=== PATIENT | male | born 1970 | race Caucasian/White ===

== ENCOUNTER 2016-10-13 10:49 | Emergency (ER) | payer OTHER ==
[~2016-10-13] VITALS: Ht 188 cm; Wt 87.5 kg
[2016-10-13 10:58] VITALS: BP 142/83; PULSE 86; RESP 20; TEMP 97.9; O2SAT 100
--- NOTE | 2016-10-13 11:05 | NUR ---
Pt placed to ER waiting room in stable condition.
--- NOTE | 2016-10-13 11:20 | NUR ---
Pt placed to ER bed 4, report given to PARTH Razo and Dr. Lutz.
--- NOTE | 2016-10-13 11:21 | NUR ---
ER at bedside examining patient.
[2016-10-13] MEDS ORDERED: IBUPROFEN 600 MG TABLET PO ONE (11:30)
--- NOTE | 2016-10-13 11:35 | NUR ---
PT PRESENTS TO ED C/O R WRIST PAIN S/P MECH FALL. PT HAS DECREASED ROM. PT HAS ABRASION TO FACE.
--- NOTE | 2016-10-13 11:50 | NUR ---
R WRIST SPLINT APPLIED.
[2016-10-13 12:47] VITALS: BP 122/79; PULSE 68; RESP 16; TEMP 98; O2SAT 98
--- NOTE | 2016-10-13 12:48 | NUR ---
Patient given written and verbal discharge instructions and verbalizes understanding. ER MD discussed with patient the results and treatment provided. Given copies of tests performed in ER. Patient in stable condition. ID arm band removed. Rx of IBUPROFEN given. Patient educated on pain management and to follow up with PMD. Pain Scale . Opportunity for questions provided and answered.
--- NOTE | 2016-10-14 09:37 | NUR ---
pt called back for abnormal x-ray and pt will f/u with PMD.
== END 2016-10-13 12:47 | disposition home or self-care (01) ==
LOC: SED 10:49
DX: S63.612A Unspecified sprain of right middle finger, initial encounter (principal); S60.211A Contusion of right wrist, initial encounter; S00.83XA Contusion of other part of head, initial encounter; R03.0 Elevated blood-pressure reading, without diagnosis of hypertension; W01.0XXA Fall on same level from slipping, tripping and stumbling without subsequent striking against object, initial encounter; Y93.89 Activity, other specified; Y99.8 Other external cause status; Y92.89 Other specified places as the place of occurrence of the external cause
CPT/HCPCS: 73140-TC; 99284

== ENCOUNTER 2016-12-14 09:14 | Outpatient (CLI) | payer OTHER ==
[2016-12-14 10:07] LABS: BASOPHILS % (AUTO) 0.4 % (0.0-2.0); EOSINOPHILS # (AUTO) 0.3 K/uL (0.0-0.4); EOSINOPHILS % (AUTO) 3.6 % (0.0-4.0); HEMATOCRIT 46.5 % (36-54); HEMOGLOBIN 15.4 g/dL (14.0-18.0); LYMPHOCYTES % (AUTO) 28.7 % (20.5-51.5); MEAN CORPUSCULAR HEMOGLOBIN 31 pg (27-31); MEAN CORPUSCULAR HGB CONC 33 % (32-36); MEAN CORPUSCULAR VOLUME 92 fL (79.0-98.0); MONOCYTES # (AUTO) 0.7 K/uL (0.0-1.0); MONOCYTES % (AUTO) 9.5 % (1.7-9.3); NEUTROPHILS # (AUTO) 4.1 K/uL (1.8-7.7); NEUTROPHILS % (AUTO) 57.8 % (40.0-70.0); PLATELET COUNT (AUTO) 249 K/uL (130-430); RED BLOOD CELL COUNT(AUTO) 5.03 MIL/uL (4.2-6.2); RED CELL DISTRIBUTION WIDTH 12.4 % (9.0-15.0); WHITE BLOOD COUNT (AUTO) 7.1 K/uL (4.8-10.8)
[2016-12-14 10:29] LABS: ALBUMIN 4.3 g/dL (3.4-4.8); CALCIUM 9.4 mg/dL (8.4-11.0); CREATININE 1.09 mg/dL (0.55-1.30); POTASSIUM 4.8 mmol/L (3.5-5.1); THYROID STIMULATING HORMONE 1.36 uIu/mL (0.34-4.82); TOTAL BILIRUBIN 0.5 mg/dL (0.0-1.0); TOTAL PROTEIN, SERUM 7.8 g/dL (6.4-8.3)
== END 2016-12-14 19:25 | disposition home or self-care (01) ==
LOC: SLB 09:14
PROVIDERS: ATTEND Specialist
DX: Z00.00 Encounter for general adult medical examination without abnormal findings (principal); E66.3 Overweight
CPT/HCPCS: 36415; 80053; 80061; 82306; 84443-TC; 85025

== ENCOUNTER 2018-01-28 09:21 | Outpatient (CLI) | payer OTHER ==
[2018-01-28 09:53] LABS: BASOPHILS % (AUTO) 0.7 % (0.0-2.0); EOSINOPHILS # (AUTO) 0.2 K/uL (0.0-0.4); EOSINOPHILS % (AUTO) 3.4 % (0.0-4.0); HEMATOCRIT 42.6 % (36-54); HEMOGLOBIN 14.6 g/dL (14.0-18.0); LYMPHOCYTES # (AUTO) 1.7 K/uL (1.0-5.5); LYMPHOCYTES % (AUTO) 29.4 % (20.5-51.5); MEAN CORPUSCULAR HEMOGLOBIN 33 pg (27-31); MEAN CORPUSCULAR HGB CONC 34 % (32-36); MEAN CORPUSCULAR VOLUME 95 fL (79.0-98.0); MONOCYTES # (AUTO) 0.5 K/uL (0.0-1.0); MONOCYTES % (AUTO) 9.1 % (1.7-9.3); NEUTROPHILS # (AUTO) 3.5 K/uL (1.8-7.7); NEUTROPHILS % (AUTO) 57.4 % (40.0-70.0); PLATELET COUNT (AUTO) 273 K/uL (130-430); RED BLOOD CELL COUNT(AUTO) 4.48 MIL/uL (4.2-6.2); RED CELL DISTRIBUTION WIDTH 12.1 % (9.0-15.0); WHITE BLOOD COUNT (AUTO) 5.9 K/uL (4.8-10.8)
[2018-01-28 10:21] LABS: ALBUMIN 3.8 g/dL (3.4-4.8); CALCIUM 8.6 mg/dL (8.4-11.0); CREATININE 1.03 mg/dL (0.55-1.30); POTASSIUM 4.1 mmol/L (3.5-5.1); THYROID STIMULATING HORMONE 1.32 uIu/mL (0.34-4.82); TOTAL BILIRUBIN 0.6 mg/dL (0.0-1.0)
[2018-01-31 11:09] LABS: HEMOGLOBIN A1C 5.2 % (4.8-5.6)
== END 2018-01-28 20:47 | disposition home or self-care (01) ==
LOC: SLB 09:21
PROVIDERS: ATTEND Specialist
DX: E55.9 Vitamin D deficiency, unspecified (principal); R73.09 Other abnormal glucose; E78.2 Mixed hyperlipidemia
CPT/HCPCS: 36415; 80053; 80061; 82306; 83036; 84443-TC; 85025

== ENCOUNTER 2019-07-10 09:49 | Outpatient (CLI) | payer OTHER ==
[2019-07-10 10:46] LABS: BASOPHILS % (AUTO) 0.7 % (0.0-2.0); EOSINOPHILS # (AUTO) 0.1 K/uL (0.0-0.4); EOSINOPHILS % (AUTO) 2.2 % (0.0-4.0); HEMATOCRIT 40.7 % (36-54); HEMOGLOBIN 14.3 g/dL (14.0-18.0); MEAN CORPUSCULAR HEMOGLOBIN 33 pg (27-31); MEAN CORPUSCULAR HGB CONC 35 % (32-36); MEAN CORPUSCULAR VOLUME 93 fL (79.0-98.0); MONOCYTES # (AUTO) 0.5 K/uL (0.0-1.0); MONOCYTES % (AUTO) 8.5 % (1.7-9.3); NEUTROPHILS # (AUTO) 3.6 K/uL (1.8-7.7); NEUTROPHILS % (AUTO) 57.6 % (40.0-70.0); PLATELET COUNT (AUTO) 248 K/uL (130-430); RED BLOOD CELL COUNT(AUTO) 4.38 MIL/uL (4.2-6.2); RED CELL DISTRIBUTION WIDTH 13.9 % (9.0-15.0); WHITE BLOOD COUNT (AUTO) 6.3 K/uL (4.8-10.8)
[2019-07-10 11:16] LABS: ALBUMIN 3.9 g/dL (3.4-4.8); CALCIUM 8.8 mg/dL (8.4-11.0); CREATININE 0.89 mg/dL (0.55-1.30); POTASSIUM 4.4 mmol/L (3.5-5.1); THYROID STIMULATING HORMONE 1.63 uIu/mL (0.36-3.74); TOTAL BILIRUBIN 0.5 mg/dL (0.0-1.0)
[2019-07-11 03:19] LABS: HEMOGLOBIN A1C 5.2 % (4.8-5.6)
[2019-07-11 07:06] LABS: PROSTATE SPECIFIC AG 2.6 ng/mL (0.0-4.0)
== END 2019-07-10 19:09 | disposition home or self-care (01) ==
LOC: SLB 09:49
PROVIDERS: ATTEND Specialist
DX: R73.09 Other abnormal glucose (principal); E66.3 Overweight; E55.9 Vitamin D deficiency, unspecified
CPT/HCPCS: 36415; 80053; 80061; 82306; 83036; 84153; 84443-TC; 85025

== ENCOUNTER → 2020-07-15 | Outpatient (CLI) | payer OTHER ==
[2020-07-16 07:28] LABS: C-REACTIVE PROTEIN QUANT < 0.2 mg/dL (0-0.5); URIC ACID 8.7 mg/dL (2.4-7.0)
== END | disposition home or self-care (01) ==
LOC: SLB 09:21
DX: M79.609 Pain in unspecified limb (principal)
CPT/HCPCS: 36415; 84550-TC; 85651-TC; 86038; 86140; 86431

== ENCOUNTER 2021-05-19 09:32 | Outpatient (CLI) | payer OTHER ==
[2021-05-19 10:30] LABS: BASOPHILS % (AUTO) 0.7 % (0.0-2.0); EOSINOPHILS # (AUTO) 0.3 K/uL (0.0-0.4); HEMATOCRIT 35.1 % (36-54); HEMOGLOBIN 11.3 g/dL (14.0-18.0); LYMPHOCYTES # (AUTO) 1.6 K/uL (1.0-5.5); LYMPHOCYTES % (AUTO) 27.7 % (20.5-51.5); MEAN CORPUSCULAR HEMOGLOBIN 24 pg (27-31); MEAN CORPUSCULAR HGB CONC 32 % (32-36); MEAN CORPUSCULAR VOLUME 75 fL (79.0-98.0); MONOCYTES # (AUTO) 0.5 K/uL (0.0-1.0); MONOCYTES % (AUTO) 8.8 % (1.7-9.3); NEUTROPHILS # (AUTO) 3.3 K/uL (1.8-7.7); NEUTROPHILS % (AUTO) 57.8 % (40.0-70.0); PLATELET COUNT (AUTO) 355 K/uL (130-430); RED BLOOD CELL COUNT(AUTO) 4.66 MIL/uL (4.2-6.2); RED CELL DISTRIBUTION WIDTH 15.9 % (9.0-15.0); WHITE BLOOD COUNT (AUTO) 5.7 K/uL (4.8-10.8)
[2021-05-19 10:43] LABS: TOTAL IRON BIND. CAPACITY 514 ug/dL (250-450)
[2021-05-19 10:45] LABS: CALCIUM 9.1 mg/dL (8.4-11.0); CREATININE 0.97 mg/dL (0.55-1.30); POTASSIUM 4.8 mmol/L (3.5-5.1); TOTAL BILIRUBIN 0.3 mg/dL (0.0-1.0)
[2021-05-20 07:06] LABS: HEMOGLOBIN A1C 5.5 % (4.8-5.6)
== END 2021-05-19 20:57 | disposition home or self-care (01) ==
LOC: SLB 09:32
PROVIDERS: ATTEND Specialist
DX: E55.9 Vitamin D deficiency, unspecified (principal); R73.09 Other abnormal glucose
CPT/HCPCS: 36415; 80053; 82306; 82607; 83036; 83540; 83550; 85025

== ENCOUNTER 2021-12-26 06:13 | Day surgery (SDC) | payer OTHER ==
[~2021-12-26] VITALS: Ht 188 cm; Wt 90.7 kg
[2021-12-26] MEDS ORDERED: MIDAZOLAM HCL 5 MG/5 ML VIAL ONE ×2 (07:08→08:58)
[2021-12-26] MEDS ORDERED: SIMETHICONE 40 MG/0.6 ML ML ONE (07:08)
[2021-12-26] MEDS ORDERED: MEPERIDINE 100 MG INJ. 100 MG/ML VIAL ONE (07:08)
[2021-12-26 13:18] VITALS: BP_SYST 125
== END 2021-12-26 10:00 | disposition home or self-care (01) ==
LOC: SMU 06:13 → SDS 06:13
PROVIDERS: ATTEND Internal Medicine Gastroenterology
DX: D50.9 Iron deficiency anemia, unspecified (principal); D12.3 Benign neoplasm of transverse colon; D12.4 Benign neoplasm of descending colon; D12.5 Benign neoplasm of sigmoid colon; K64.9 Unspecified hemorrhoids; K29.50 Unspecified chronic gastritis without bleeding; K92.1 Melena; Z87.891 Personal history of nicotine dependence; Z79.899 Other long term (current) drug therapy; Z20.822 Contact with and (suspected) exposure to COVID-19
CPT/HCPCS: 36415 ×2; 43239; 45380; 45381; 45385; 87426; 88305; 88312; 88313; 99152; 99153; G0378; J2175; J2250; U0003; 45384

== ENCOUNTER 2021-12-27 09:17 | Emergency (ER) | payer OTHER ==
[~2021-12-27] VITALS: Ht 188 cm; Wt 90.7 kg
[2021-12-27 09:34] VITALS: BP_SYST 151
--- NOTE | 2021-12-27 09:34 | NUR ---
Patient to ER bed 6 to gown for evaluation. Side rails up. Report given to [place].
--- NOTE | 2021-12-27 09:43 | NUR ---
EMERITA Kruger at bedside examining patient.
--- NOTE | 2021-12-27 09:50 | NUR ---
Pt presents to ER BIB self from home. CC Intermittant pain to RUQ abdomen. PS 5/10. Respiration rate uneven 22 Saturation 95%. Pt skin intact, no signs of trauma, Pt states preliminary DX of Rectal/colon Cancer yesterday at colonoscopy. Pt notes blood in stools present.VS wnl aaox4. bed rails up bed down. PMH preliminary DX colon cancer Anemic
[2021-12-27] MEDS ORDERED: iohexoL 350 mgI/mL, 100 ML INFUS..BTL IV ONE (09:55)
--- NOTE | 2021-12-27 10:08 | NUR ---
pt to radiology dept. via [facility] with [facility]. for CT with contrast. Consent signed.
[2021-12-27 10:11] LABS: BASOPHILS % (AUTO) 0.4 % (0.0-2.0); EOSINOPHILS # (AUTO) 0.2 K/uL (0.0-0.4); HEMATOCRIT 39.7 % (36-54); HEMOGLOBIN 13.8 g/dL (14.0-18.0); LYMPHOCYTES # (AUTO) 1.3 K/uL (1.0-5.5); LYMPHOCYTES % (AUTO) 20.7 % (20.5-51.5); MEAN CORPUSCULAR HEMOGLOBIN 31 pg (27-31); MEAN CORPUSCULAR HGB CONC 35 % (32-36); MEAN CORPUSCULAR VOLUME 88 fL (79.0-98.0); MONOCYTES # (AUTO) 0.6 K/uL (0.0-1.0); MONOCYTES % (AUTO) 9.5 % (1.7-9.3); NEUTROPHILS % (AUTO) 65.4 % (40.0-70.0); PLATELET COUNT (AUTO) 244 K/uL (130-430); RED CELL DISTRIBUTION WIDTH 14.6 % (9.0-15.0); WHITE BLOOD COUNT (AUTO) 6.1 K/uL (4.8-10.8)
[2021-12-27] MEDS ORDERED: IBUPROFEN 600 MG TABLET PO ONE (10:15)
[2021-12-27 10:41] LABS: ANION GAP 8 (5-15); CALCIUM 8.3 mg/dL (8.4-11.0); CHLORIDE 105 mmol/L (98-107); CREATININE 0.94 mg/dL (0.55-1.30); GLUCOSE 99 mg/dL (70-99); POTASSIUM 3.6 mmol/L (3.5-5.1); SODIUM SERUM 141 mmol/L (136-145); UREA NITROGEN, BLOOD 10 mg/dL (8-21)
[2021-12-27 10:45] LABS: GFR AFRICAN AMERICAN 110 mL/min (>90)
[2021-12-27 10:54] LABS: ALANINE AMINOTRANSFERASE 20 U/L (12-78); ALBUMIN 3.5 g/dL (3.4-4.8); ASPARTATE AMINOTRANSFERASE 11 U/L (10-37); TOTAL BILIRUBIN 0.3 mg/dL (0.0-1.0)
--- NOTE | 2021-12-27 11:55 | NUR ---
Patient given written and verbal discharge instructions and verbalizes understanding. ER MD discussed with patient the results and treatment provided. Patient in stable condition. ID arm band removed. IV catheter removed intact and dressing applied, no active bleeding. Opportunity for questions provided and answered. Medication side effect fact sheet provided.
[2021-12-27 15:14] VITALS: BP_SYST 151
== END 2021-12-27 11:55 | disposition home or self-care (01) ==
LOC: SED 09:17
DX: R07.89 Other chest pain (principal)
CPT/HCPCS: 36415; 71275; 76376; 80053; 84484; 85025; 99285; Q9967; 99284

== ENCOUNTER 2022-01-01 07:09 | Outpatient (CLI) | payer OTHER ==
[2022-01-01] MEDS ORDERED: DIATR MEGLU/DIATRIZ SOD 30 ML SOLUTION PO ONE (07:31)
[2022-01-01 08:09] LABS: BASOPHILS % (AUTO) 0.6 % (0.0-2.0); EOSINOPHILS # (AUTO) 0.4 K/uL (0.0-0.4); EOSINOPHILS % (AUTO) 5.8 % (0.0-4.0); HEMATOCRIT 41.8 % (36-54); HEMOGLOBIN 14.3 g/dL (14.0-18.0); LYMPHOCYTES # (AUTO) 1.6 K/uL (1.0-5.5); LYMPHOCYTES % (AUTO) 25.4 % (20.5-51.5); MEAN CORPUSCULAR HEMOGLOBIN 31 pg (27-31); MEAN CORPUSCULAR HGB CONC 34 % (32-36); MEAN CORPUSCULAR VOLUME 90 fL (79.0-98.0); MONOCYTES # (AUTO) 0.6 K/uL (0.0-1.0); MONOCYTES % (AUTO) 9.2 % (1.7-9.3); NEUTROPHILS # (AUTO) 3.8 K/uL (1.8-7.7); PLATELET COUNT (AUTO) 280 K/uL (130-430); RED BLOOD CELL COUNT(AUTO) 4.65 MIL/uL (4.2-6.2); RED CELL DISTRIBUTION WIDTH 13.9 % (9.0-15.0); WHITE BLOOD COUNT (AUTO) 6.5 K/uL (4.8-10.8)
[2022-01-01 08:26] LABS: ALBUMIN 3.5 g/dL (3.4-4.8); CALCIUM 8.1 mg/dL (8.4-11.0); CREATININE 0.94 mg/dL (0.55-1.30); POTASSIUM 4.2 mmol/L (3.5-5.1); TOTAL BILIRUBIN 0.2 mg/dL (0.0-1.0)
[2022-01-01 08:42] LABS: INR 0.9 (0.80-1.20); PROTHROMBIN TIME 9.9 SECS (9.5-12.5)
== END 2022-01-01 20:46 | disposition home or self-care (01) ==
LOC: SCT 07:09
PROVIDERS: ATTEND Internal Medicine Gastroenterology
DX: C19 Malignant neoplasm of rectosigmoid junction (principal); K63.89 Other specified diseases of intestine; K80.20 Calculus of gallbladder without cholecystitis without obstruction; M47.814 Spondylosis without myelopathy or radiculopathy, thoracic region
CPT/HCPCS: 36415; 71260; 74177; 76376; 80053; 82378; 85025; 85610; Q9964; Q9967

== ENCOUNTER 2022-01-22 08:43 | Outpatient (CLI) | payer OTHER ==
[2022-01-22] MEDS ORDERED: GADOTERATE MEGLUMINE 7.5 MMOL/15 ML VIAL IV ONE (09:22)
== END 2022-01-22 19:29 | disposition home or self-care (01) ==
LOC: SMI 08:43
PROVIDERS: ATTEND Surgery
DX: C21.8 Malignant neoplasm of overlapping sites of rectum, anus and anal canal (principal); N40.0 Benign prostatic hyperplasia without lower urinary tract symptoms
CPT/HCPCS: 72197; A9575

== ENCOUNTER 2022-07-20 00:07 | Emergency (ER) | payer OTHER ==
[~2022-07-20] VITALS: Ht 188 cm; Wt 99.8 kg
[2022-07-20 00:15] VITALS: BP_SYST 143
[2022-07-20] MEDS ORDERED: MAG-AL HYDROX/SIMETH 30 ML UDC PO ONE (00:30)
[2022-07-20] MEDS ORDERED: LIDOCAINE VISCOUS 2%, 15 ML UDC MM ONE (00:30)
--- NOTE | 2022-07-20 00:44 | NUR ---
Patient to ER bed alvarado 3 to gown for evaluation. Side rails up. Report given to Francisca ALBA.
--- NOTE | 2022-07-20 00:45 | NUR ---
PATIENT BROUGHT IN COMPLAINING OF EPIGASTRIC PAIN RADIATING UP CHEST. PATIENT REPORTS HISTORY FOR GERD AND USUALLY TAKES GI COCKTAIL FOR RELIEF. PATIENT REPORTS TAKING MAALOX WITH NO RELIEF.
--- NOTE | 2022-07-20 00:47 | NUR ---
ER at bedside examining patient.
[2022-07-20] MEDS ORDERED: DICYCLOMINE HCL 10 MG/5 ML SOLUTION PO ONE (01:00)
[2022-07-20] MEDS ORDERED: FAMO-132 PO (01:30)
[2022-07-20 01:33] VITALS: BP_SYST 132
--- NOTE | 2022-07-20 01:33 | NUR ---
Patient given written and verbal discharge instructions and verbalizes understanding. ER MD discussed with patient the results and treatment provided. Patient in stable condition. ID arm band removed. I Rx of PEPCID given. Patient educated on pain management and to follow up with PMD. Pain Scale 0/10 Opportunity for questions provided and answered. Medication side effect fact sheet provided.
== END 2022-07-20 01:33 | disposition home or self-care (01) ==
LOC: SED 00:07
DX: R12 Heartburn (principal); Z79.899 Other long term (current) drug therapy
CPT/HCPCS: 99283; 93005; J2001

== ENCOUNTER 2023-01-24 14:03 | Emergency (ER) | payer OTHER ==
[~2023-01-24] VITALS: Ht 185.4 cm; Wt 99.8 kg
[~2023-01-24 14:03] MED LIST: FAMO-132 PO
[2023-01-24 14:51] VITALS: BP_SYST 113
[2023-01-24] MEDS ORDERED: CEPH-548 PO (14:58)
[2023-01-24] MEDS ORDERED: LIDO1ADH71 TD (14:58)
[2023-01-24] MEDS ORDERED: NAPR-690 PO (14:58)
[2023-01-24] MEDS ORDERED: HYDR-3927 PO (14:58)
[2023-01-24] MEDS ORDERED: OXYCODONE/ACETAMINOPHEN 5-325 TABLET PO ONE (15:00)
[2023-01-24 15:17] VITALS: BP_SYST 113
== END 2023-01-24 15:14 | disposition home or self-care (01) ==
LOC: SED 14:03
DX: M75.52 Bursitis of left shoulder (principal); M25.512 Pain in left shoulder; Z85.038 Personal history of other malignant neoplasm of large intestine; Z79.899 Other long term (current) drug therapy
CPT/HCPCS: 99283

== ENCOUNTER 2023-07-01 09:31 | Outpatient (CLI) | payer OTHER ==
[~2023-07-01 09:31] MED LIST changes: +CEPH-548 PO; +HYDR-3927 PO; +LIDO1ADH71 TD; +NAPR-690 PO
[2023-07-01 10:15] LABS: BASOPHILS % (AUTO) 0.5 % (0.0-2.0); EOSINOPHILS # (AUTO) 0.2 K/uL (0.0-0.4); EOSINOPHILS % (AUTO) 3.9 % (0.0-4.0); HEMOGLOBIN 13.7 g/dL (14.0-18.0); LYMPHOCYTES # (AUTO) 1.1 K/uL (1.0-5.5); LYMPHOCYTES % (AUTO) 22.1 % (20.5-51.5); MEAN CORPUSCULAR HEMOGLOBIN 31 pg (27-31); MEAN CORPUSCULAR HGB CONC 34 % (32-36); MEAN CORPUSCULAR VOLUME 89 fL (79.0-98.0); MONOCYTES # (AUTO) 0.5 K/uL (0.0-1.0); MONOCYTES % (AUTO) 9.8 % (1.7-9.3); NEUTROPHILS # (AUTO) 3.1 K/uL (1.8-7.7); NEUTROPHILS % (AUTO) 63.7 % (40.0-70.0); PLATELET COUNT (AUTO) 276 K/uL (130-430); RED BLOOD CELL COUNT(AUTO) 4.48 MIL/uL (4.2-6.2); WHITE BLOOD COUNT (AUTO) 4.8 K/uL (4.8-10.8)
[2023-07-01 13:33] LABS: CALCIUM 8.9 mg/dL (8.4-11.0); CREATININE 0.85 mg/dL (0.55-1.30); THYROID STIMULATING HORMONE 0.9 uIu/mL (0.36-3.74); TOTAL BILIRUBIN 0.4 mg/dL (0.0-1.0)
[2023-07-01 14:57] LABS: HEMOGLOBIN A1C 5.15 % (<5.7)
[2023-07-01 15:43] LABS: TOTAL IRON BIND. CAPACITY 328 ug/dL (250-450)
[2023-07-02 08:07] LABS: PROSTATE SPECIFIC AG 5.1 ng/mL (0.0-4.0)
== END 2023-07-01 19:09 | disposition home or self-care (01) ==
LOC: SLB 09:31
PROVIDERS: ATTEND Specialist
DX: Z12.5 Encounter for screening for malignant neoplasm of prostate (principal); R73.09 Other abnormal glucose; D50.0 Iron deficiency anemia secondary to blood loss (chronic); E55.9 Vitamin D deficiency, unspecified; E66.3 Overweight; G62.0 Drug-induced polyneuropathy; Z90.49 Acquired absence of other specified parts of digestive tract
CPT/HCPCS: 36415; 80053; 80061; 82306; 82607; 83037; 83540; 83550; 84153; 84443; 85025